=== PATIENT | female | born 2000 | race Caucasian/White ===

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

== ENCOUNTER 2018-03-26 08:11 | Emergency (ER) | payer OTHER ==
[~2018-03-26] VITALS: Ht 167.6 cm; Wt 67.0 kg
[~2018-03-26 08:11] MED LIST changes: -CLINGEL TOP; -MICO2CRE; -NYST80OI TOP
[2018-03-26 08:18] VITALS: TEMP 36.5; Ht 167.6 cm; Wt 67.0 kg
[2018-03-26] MEDS ORDERED: DULO-24 PO (09:06)
[2018-03-26] MEDS ORDERED: LORA-741 PO ×2 (09:06→09:11)
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
[2018-03-26 10:14] VITALS: BP 117/64; PULSE 78; O2SAT 100
== END 2018-03-26 10:29 | disposition home or self-care (01) ==
LOC: C.EDB 08:13
DX: S09.90XA Unspecified injury of head, initial encounter (principal); S00.83XA Contusion of other part of head, initial encounter; V19.88XA Pedal cyclist (driver) (passenger) injured in other specified transport accidents, initial encounter; Y92.488 Other paved roadways as the place of occurrence of the external cause; F41.9 Anxiety disorder, unspecified; F84.0 Autistic disorder; F32.9 Major depressive disorder, single episode, unspecified; F43.10 Post-traumatic stress disorder, unspecified